=== PATIENT | male | born 1940 | race Caucasian/White ===

== ENCOUNTER 2017-09-28 21:55 | Emergency (ER) | payer BC ==
[~2017-09-28] VITALS: Ht 177.8 cm; Wt 74.8 kg
[~2017-09-28 21:55] MED LIST: ASPI81EC; BENAML10/2 PO; BENAML10/5; CELE200; DULO30 PO; HYDMOR2 PO; Naprosyn375 MG PO; Norco 5-325 Ta1 EACH PO; OMEP20ER PO; OXYACE5C; OXYC5 PO; PREG50 PO; Percocet 5-3251 EACH PO; TAMS.4ER PO; TRAZ50; TRIHYD253A; Ultram50 MG PO
[2017-09-28 22:38] LABS: BASOPHILS ABSOLUTE AUTO 0.01 K/mm3 (0.00-0.23); BASOPHILS PERCENT AUTO 0 % (0-2); EOSINOPHILS ABSOLUTE AUTO 0.08 K/mm3 (0.00-0.68); EOSINOPHILS PERCENT AUTO 2 % (0-6); Hematocrit 34.1 % (37.0-53.0); Hemoglobin 11.7 g/dL (13.5-17.5); IMMATURE GRAN ABSOLUTE AUTO 0.01 K/mm3 (0.00-0.10); IMMATURE GRAN PERCENT AUTO 0 % (0-1); LYMPHOCYTES ABSOLUTE AUTO 1.01 K/mm3 (0.84-5.20); LYMPHOCYTES PERCENT AUTO 23 % (21-46); MONOCYTES ABSOLUTE AUTO 0.82 K/mm3 (0.16-1.47); MONOCYTES PERCENT AUTO 19 % (4-13); Mean Corpuscular HGB 32.4 pg (26.0-34.0); Mean Corpuscular HGB Conc 34.3 g/dL (31.5-36.5); Mean Corpuscular Volume 95 fL (80-100); Mean Platelet Volume 10.4 fL (9.1-12.4); NEUTROPHILS ABSOLUTE AUTO 2.47 K/mm3 (1.96-9.15); NEUTROPHILS PERCENT AUTO 56 % (41-73); Platelet Count 151 K/mm3 (150-400); RDW Coefficient Variation 12.8 % (11.7-14.2); RDW Standard Deviation 44.7 fL (35.1-46.3); Red Blood Cell Count 3.61 M/mm3 (4.30-5.90)
[2017-09-28 23:03] LABS: Alanine Aminotransfer (ALT/SGP 14 U/L (12-78); Albumin, Blood 3.1 g/dL (3.4-5.0); Albumin/Globulin Ratio 0.8 (0.8-1.8); Alk Phos 60 U/L (50-136); Anion Gap 11 mmol/L (6-16); Aspartate Aminotrans (AST/SGOT 26 U/L (12-37); Bilirubin, Total 0.3 mg/dL (0.1-1.0); Blood Urea Nitrogen 9 mg/dL (8-24); Bun/Creatinine Ratio 12.6 (12.0-20.0); CO2, Blood 30 mmol/L (21-32); Chloride, Blood 92 mmol/L (98-108); Creatinine, Blood 0.72 mg/dL (0.60-1.20); Globulin, Blood 3.9 g/dL (2.2-4.0); Glomerular Filtration Rate >60 (60-); Glucose, Blood 96 mg/dL (70-99); Potassium, Blood 2.9 mmol/L (3.5-5.5); Sodium, Blood 133 mmol/L (136-145); Troponin I <0.015 ng/mL (0.000-0.040)
[2017-09-29] MEDS ORDERED: LEVFLO500 PO (02:18)
== END 2017-09-29 03:00 | disposition home or self-care (01) ==
LOC: ER 21:55
PROVIDERS: Emergency Medicine
DX: S22.079A Unspecified fracture of T9-T10 vertebra, initial encounter for closed fracture (principal); J18.9 Pneumonia, unspecified organism; E87.6 Hypokalemia; Z79.899 Other long term (current) drug therapy; Z87.891 Personal history of nicotine dependence; W01.0XXA Fall on same level from slipping, tripping and stumbling without subsequent striking against object, initial encounter
CPT/HCPCS: 36415; 71046; 71260; 80053; 84484; 85025; 93005; 93010; 96374; 96375; 99284; J1170; J2405; Q9967

== ENCOUNTER 2018-04-01 08:50 | Observation (INO) | payer BC ==
[~2018-04-01] VITALS: Ht 172.7 cm; Wt 68.0 kg
[~2018-04-01 08:50] MED LIST changes: +LEVFLO500 PO
[2018-04-01 09:12] LABS: BASOPHILS ABSOLUTE AUTO 0.01 K/mm3 (0.00-0.23); BASOPHILS PERCENT AUTO 0 % (0-2); EOSINOPHILS PERCENT AUTO 0 % (0-6); Hematocrit 36.9 % (37.0-53.0); Hemoglobin 12.8 g/dL (13.5-17.5); IMMATURE GRAN ABSOLUTE AUTO 0.03 K/mm3 (0.00-0.10); IMMATURE GRAN PERCENT AUTO 0 % (0-1); LYMPHOCYTES ABSOLUTE AUTO 0.25 K/mm3 (0.84-5.20); LYMPHOCYTES PERCENT AUTO 2 % (21-46); MONOCYTES PERCENT AUTO 9 % (4-13); Mean Corpuscular HGB 33.5 pg (26.0-34.0); Mean Corpuscular HGB Conc 34.7 g/dL (31.5-36.5); Mean Corpuscular Volume 97 fL (80-100); Mean Platelet Volume 9.9 fL (9.1-12.4); NEUTROPHILS ABSOLUTE AUTO 10.93 K/mm3 (1.96-9.15); NEUTROPHILS PERCENT AUTO 89 % (41-73); Platelet Count 188 K/mm3 (150-400); RDW Coefficient Variation 12.3 % (11.7-14.2); RDW Standard Deviation 43.8 fL (35.1-46.3); Red Blood Cell Count 3.82 M/mm3 (4.30-5.90); White Blood Cell Count 12.32 K/mm3 (4.00-11.30)
[2018-04-01 09:38] LABS: Alanine Aminotransfer (ALT/SGP 15 U/L (12-78); Albumin, Blood 3.2 g/dL (3.4-5.0); Albumin/Globulin Ratio 0.9 (0.8-1.8); Alk Phos 79 U/L (50-136); Anion Gap 10 mmol/L (6-16); Aspartate Aminotrans (AST/SGOT 14 U/L (12-37); Bilirubin, Total 0.7 mg/dL (0.1-1.0); Blood Urea Nitrogen 9 mg/dL (8-24); Bun/Creatinine Ratio 13.6 (12.0-20.0); CO2, Blood 28 mmol/L (21-32); Calcium, Blood 8.6 mg/dL (8.5-10.1); Chloride, Blood 102 mmol/L (98-108); Creatinine, Blood 0.66 mg/dL (0.60-1.20); Globulin, Blood 3.5 g/dL (2.2-4.0); Glomerular Filtration Rate >60 (60-); Glucose, Blood 136 mg/dL (70-99); Potassium, Blood 3.6 mmol/L (3.5-5.5); Sodium, Blood 140 mmol/L (136-145); Total Protein, Blood 6.7 g/dL (6.4-8.2)
[2018-04-01] MEDS ORDERED: PREG25 PO (12:47)
[2018-04-01] MEDS ORDERED: ACET325 (12:48)
[2018-04-01 19:44] LABS: BASOPHILS ABSOLUTE AUTO 0.02 K/mm3 (0.00-0.23); BASOPHILS PERCENT AUTO 0 % (0-2); EOSINOPHILS PERCENT AUTO 0 % (0-6); Hematocrit 34.9 % (37.0-53.0); Hemoglobin 12.2 g/dL (13.5-17.5); IMMATURE GRAN ABSOLUTE AUTO 0.06 K/mm3 (0.00-0.10); IMMATURE GRAN PERCENT AUTO 0 % (0-1); LYMPHOCYTES ABSOLUTE AUTO 0.78 K/mm3 (0.84-5.20); LYMPHOCYTES PERCENT AUTO 6 % (21-46); MONOCYTES PERCENT AUTO 9 % (4-13); Mean Corpuscular HGB 34.1 pg (26.0-34.0); Mean Corpuscular Volume 98 fL (80-100); Mean Platelet Volume 10.3 fL (9.1-12.4); NEUTROPHILS ABSOLUTE AUTO 11.72 K/mm3 (1.96-9.15); NEUTROPHILS PERCENT AUTO 85 % (41-73); Platelet Count 171 K/mm3 (150-400); RDW Coefficient Variation 12.6 % (11.7-14.2); RDW Standard Deviation 45.1 fL (35.1-46.3); Red Blood Cell Count 3.58 M/mm3 (4.30-5.90); White Blood Cell Count 13.78 K/mm3 (4.00-11.30)
[2018-04-02 04:53] LABS: BASOPHILS ABSOLUTE AUTO 0.01 K/mm3 (0.00-0.23); BASOPHILS PERCENT AUTO 0 % (0-2); EOSINOPHILS ABSOLUTE AUTO 0.06 K/mm3 (0.00-0.68); EOSINOPHILS PERCENT AUTO 1 % (0-6); Hematocrit 34.5 % (37.0-53.0); Hemoglobin 11.7 g/dL (13.5-17.5); IMMATURE GRAN ABSOLUTE AUTO 0.03 K/mm3 (0.00-0.10); IMMATURE GRAN PERCENT AUTO 0 % (0-1); LYMPHOCYTES ABSOLUTE AUTO 1.16 K/mm3 (0.84-5.20); LYMPHOCYTES PERCENT AUTO 11 % (21-46); MONOCYTES ABSOLUTE AUTO 0.96 K/mm3 (0.16-1.47); MONOCYTES PERCENT AUTO 9 % (4-13); Mean Corpuscular HGB 33.1 pg (26.0-34.0); Mean Corpuscular HGB Conc 33.9 g/dL (31.5-36.5); Mean Corpuscular Volume 98 fL (80-100); Mean Platelet Volume 10.3 fL (9.1-12.4); NEUTROPHILS ABSOLUTE AUTO 8.14 K/mm3 (1.96-9.15); NEUTROPHILS PERCENT AUTO 79 % (41-73); Platelet Count 174 K/mm3 (150-400); RDW Coefficient Variation 12.6 % (11.7-14.2); RDW Standard Deviation 45.3 fL (35.1-46.3); Red Blood Cell Count 3.54 M/mm3 (4.30-5.90); White Blood Cell Count 10.36 K/mm3 (4.00-11.30)
[2018-04-02] MEDS ORDERED: OMEPRAZOLE MAGN20 MG PO (16:43)
[2018-04-02] MEDS ORDERED: Augmentin 875-1 EACH PO (16:44)
== END 2018-04-02 17:57 | disposition home or self-care (01) ==
LOC: ER 08:50 → MEDS 08:51 → ENPENDDIS 04-02 17:35 → MEDS 04-02 17:57
PROVIDERS: Emergency Medicine; Hospitalist; Internal Medicine Gastroenterology
PROC: 0D758ZZ Dilation of Esophagus, Via Natural or Artificial Opening Endoscopic (ICD-10-PCS; principal; 2018-04-02 12:30)
PROC: 0DB48ZX Excision of Esophagogastric Junction, Via Natural or Artificial Opening Endoscopic, Diagnostic (ICD-10-PCS; 2018-04-02 12:30)
DX: K22.2 Esophageal obstruction (principal); K20.9 Esophagitis, unspecified; J69.0 Pneumonitis due to inhalation of food and vomit; K44.9 Diaphragmatic hernia without obstruction or gangrene; K92.0 Hematemesis; G89.29 Other chronic pain; M54.9 Dorsalgia, unspecified; M54.2 Cervicalgia; N40.0 Benign prostatic hyperplasia without lower urinary tract symptoms; I10 Essential (primary) hypertension; S22.39XA Fracture of one rib, unspecified side, initial encounter for closed fracture; G62.9 Polyneuropathy, unspecified; M19.90 Unspecified osteoarthritis, unspecified site; Z87.11 Personal history of peptic ulcer disease; Z87.891 Personal history of nicotine dependence; Z79.899 Other long term (current) drug therapy; X58.XXXA Exposure to other specified factors, initial encounter
CPT/HCPCS: 36415; 74177; 80053; 83690; 85025; 93005; 93010; 96365; 96366; 96375; 96376; 97116; 97161; 99285-25; C9113; G0378; G8978; G8979; J0456; J0696; J7050; J7120; Q9967

== ENCOUNTER 2018-08-23 22:06 | Emergency (ER) | payer BC ==
[~2018-08-23] VITALS: Ht 177.8 cm; Wt 72.6 kg
[~2018-08-23 22:06] MED LIST changes: +ACET325; +Augmentin 875-1 EACH PO; +OMEPRAZOLE MAGN20 MG PO; +PREG25 PO
[2018-08-23 22:43] LABS: BASOPHILS ABSOLUTE AUTO 0.03 K/mm3 (0.00-0.23); BASOPHILS PERCENT AUTO 0 % (0-2); EOSINOPHILS ABSOLUTE AUTO 0.07 K/mm3 (0.00-0.68); EOSINOPHILS PERCENT AUTO 1 % (0-6); Hematocrit 37.2 % (37.0-53.0); Hemoglobin 12.4 g/dL (13.5-17.5); IMMATURE GRAN ABSOLUTE AUTO 0.06 K/mm3 (0.00-0.10); IMMATURE GRAN PERCENT AUTO 1 % (0-1); LYMPHOCYTES PERCENT AUTO 25 % (21-46); MONOCYTES ABSOLUTE AUTO 1.07 K/mm3 (0.16-1.47); MONOCYTES PERCENT AUTO 15 % (4-13); Mean Corpuscular HGB 32.5 pg (26.0-34.0); Mean Corpuscular HGB Conc 33.3 g/dL (31.5-36.5); Mean Corpuscular Volume 98 fL (80-100); Mean Platelet Volume 9.4 fL (9.1-12.4); NEUTROPHILS ABSOLUTE AUTO 4.23 K/mm3 (1.96-9.15); NEUTROPHILS PERCENT AUTO 58 % (41-73); Platelet Count 282 K/mm3 (150-400); RDW Coefficient Variation 12.3 % (11.7-14.2); RDW Standard Deviation 43.8 fL (35.1-46.3); Red Blood Cell Count 3.81 M/mm3 (4.30-5.90); White Blood Cell Count 7.26 K/mm3 (4.00-11.30)
[2018-08-23 22:50] LABS: Bilirubin, Urine Neg (Neg); Blood, Urine Neg (Neg); Glucose Qualitative, Urine Neg (Neg); Ketones, Urine Neg (Neg); Leukocyte Esterase, Urine Neg (Neg); Nitrite, Urine Neg (Neg); Protein, Urine Neg (Neg); Source, Urine Clean Catch; Specific Gravity, Urine 1.005 (1.003-1.022); Urobilinogen, Urine NORM (Normal)
[2018-08-23 22:55] LABS: Appearance, Urine Clear (Clear); Color, Urine Pale Yellow (P-Yellow)
[2018-08-23 23:02] LABS: Anion Gap 11 mmol/L (6-16); Blood Urea Nitrogen 7 mg/dL (8-24); Bun/Creatinine Ratio 9.4 (12.0-20.0); CO2, Blood 26 mmol/L (21-32); Calcium, Blood 8.7 mg/dL (8.5-10.1); Chloride, Blood 99 mmol/L (98-108); Creatinine, Blood 0.75 mg/dL (0.60-1.20); Glomerular Filtration Rate >60 (60-); Glucose, Blood 74 mg/dL (70-99); Potassium, Blood 3.5 mmol/L (3.5-5.5); Sodium, Blood 136 mmol/L (136-145)
== END 2018-08-23 23:38 | disposition home or self-care (01) ==
LOC: ER 22:06
PROVIDERS: Physician Assistant
DX: S01.81XA Laceration without foreign body of other part of head, initial encounter (principal); Z79.899 Other long term (current) drug therapy; Z87.891 Personal history of nicotine dependence; W01.10XA Fall on same level from slipping, tripping and stumbling with subsequent striking against unspecified object, initial encounter
CPT/HCPCS: 80048; 81003; 85025; 99283

== ENCOUNTER 2019-01-13 19:39 | Emergency (ER) | payer BC ==
[~2019-01-13] VITALS: Ht 177.8 cm; Wt 72.6 kg
[2019-01-13 20:07] LABS: BASOPHILS ABSOLUTE AUTO 0.02 K/mm3 (0.00-0.23); BASOPHILS PERCENT AUTO 0 % (0-2); EOSINOPHILS ABSOLUTE AUTO 0.08 K/mm3 (0.00-0.68); EOSINOPHILS PERCENT AUTO 1 % (0-6); Hematocrit 31.4 % (37.0-53.0); Hemoglobin 10.6 g/dL (13.5-17.5); IMMATURE GRAN ABSOLUTE AUTO 0.04 K/mm3 (0.00-0.10); IMMATURE GRAN PERCENT AUTO 1 % (0-1); LYMPHOCYTES ABSOLUTE AUTO 0.99 K/mm3 (0.84-5.20); LYMPHOCYTES PERCENT AUTO 15 % (21-46); MONOCYTES ABSOLUTE AUTO 1.25 K/mm3 (0.16-1.47); MONOCYTES PERCENT AUTO 19 % (4-13); Mean Corpuscular HGB 33.8 pg (26.0-34.0); Mean Corpuscular HGB Conc 33.8 g/dL (31.5-36.5); Mean Corpuscular Volume 100 fL (80-100); Mean Platelet Volume 10.2 fL (9.1-12.4); NEUTROPHILS ABSOLUTE AUTO 4.21 K/mm3 (1.96-9.15); NEUTROPHILS PERCENT AUTO 64 % (41-73); Platelet Count 225 K/mm3 (150-400); RDW Coefficient Variation 12.6 % (11.7-14.2); Red Blood Cell Count 3.14 M/mm3 (4.30-5.90); White Blood Cell Count 6.59 K/mm3 (4.00-11.30)
[2019-01-13 20:23] LABS: Ethanol (Alcohol), Blood, Med 192 mg/dL; Magnesium, Blood 1.7 mg/dL (1.6-2.4); Troponin I <0.015 ng/mL (0.000-0.040)
[2019-01-13 20:39] LABS: Alanine Aminotransfer (ALT/SGP 18 U/L (12-78); Alk Phos 82 U/L (50-136); Anion Gap 12 mmol/L (6-16); Aspartate Aminotrans (AST/SGOT 40 U/L (12-37); Bilirubin, Total 0.4 mg/dL (0.1-1.0); Blood Urea Nitrogen 9 mg/dL (8-24); Bun/Creatinine Ratio 7.9 (12.0-20.0); CO2, Blood 21 mmol/L (21-32); Calcium, Blood 8.1 mg/dL (8.5-10.1); Chloride, Blood 103 mmol/L (98-108); Creatinine, Blood 1.14 mg/dL (0.60-1.20); Globulin, Blood 3.1 g/dL (2.2-4.0); Glomerular Filtration Rate >60 (60-); Glucose, Blood 78 mg/dL (70-99); Potassium, Blood 3.5 mmol/L (3.5-5.5); Sodium, Blood 136 mmol/L (136-145); Total Protein, Blood 6.1 g/dL (6.4-8.2)
== END 2019-01-13 21:45 | disposition home or self-care (01) ==
LOC: ER 19:39
PROVIDERS: Emergency Medicine
DX: F10.129 Alcohol abuse with intoxication, unspecified (principal); Z96.651 Presence of right artificial knee joint; W19.XXXA Unspecified fall, initial encounter; R29.6 Repeated falls; Z79.899 Other long term (current) drug therapy; I10 Essential (primary) hypertension; Z87.891 Personal history of nicotine dependence
CPT/HCPCS: 36415; 80053; 83735; 84484; 85025; 93005; 93010; 96374; 99284-25; G0480; J3411; J3475; J7042

== ENCOUNTER 2019-02-23 09:43 | Emergency (ER) | payer BC ==
[~2019-02-23] VITALS: Ht 175.3 cm; Wt 67.1 kg
[2019-02-23 10:18] LABS: BASOPHILS ABSOLUTE AUTO 0.03 K/mm3 (0.00-0.23); BASOPHILS PERCENT AUTO 1 % (0-2); EOSINOPHILS ABSOLUTE AUTO 0.13 K/mm3 (0.00-0.68); EOSINOPHILS PERCENT AUTO 3 % (0-6); Hematocrit 32.7 % (37.0-53.0); Hemoglobin 11.1 g/dL (13.5-17.5); IMMATURE GRAN ABSOLUTE AUTO 0.01 K/mm3 (0.00-0.10); IMMATURE GRAN PERCENT AUTO 0 % (0-1); LYMPHOCYTES ABSOLUTE AUTO 0.71 K/mm3 (0.84-5.20); LYMPHOCYTES PERCENT AUTO 15 % (21-46); MONOCYTES ABSOLUTE AUTO 0.71 K/mm3 (0.16-1.47); MONOCYTES PERCENT AUTO 15 % (4-13); Mean Corpuscular HGB 32.7 pg (26.0-34.0); Mean Corpuscular HGB Conc 33.9 g/dL (31.5-36.5); Mean Corpuscular Volume 97 fL (80-100); Mean Platelet Volume 10.1 fL (9.1-12.4); NEUTROPHILS ABSOLUTE AUTO 3.06 K/mm3 (1.96-9.15); NEUTROPHILS PERCENT AUTO 66 % (41-73); Platelet Count 246 K/mm3 (150-400); RDW Coefficient Variation 11.9 % (11.7-14.2); RDW Standard Deviation 41.7 fL (35.1-46.3); Red Blood Cell Count 3.39 M/mm3 (4.30-5.90); White Blood Cell Count 4.65 K/mm3 (4.00-11.30)
[2019-02-23 10:38] LABS: Alanine Aminotransfer (ALT/SGP 26 U/L (12-78); Albumin, Blood 3.2 g/dL (3.4-5.0); Albumin/Globulin Ratio 0.9 (0.8-1.8); Alk Phos 158 U/L (50-136); Anion Gap 4 mmol/L (6-16); Aspartate Aminotrans (AST/SGOT 21 U/L (12-37); Bilirubin, Total 0.6 mg/dL (0.1-1.0); Blood Urea Nitrogen 5 mg/dL (8-24); Bun/Creatinine Ratio 7.8 (12.0-20.0); CO2, Blood 30 mmol/L (21-32); Calcium, Blood 9.2 mg/dL (8.5-10.1); Chloride, Blood 104 mmol/L (98-108); Creatinine, Blood 0.64 mg/dL (0.60-1.20); Globulin, Blood 3.5 g/dL (2.2-4.0); Glomerular Filtration Rate >60 (60-); Glucose, Blood 93 mg/dL (70-99); Potassium, Blood 3.6 mmol/L (3.5-5.5); Sodium, Blood 138 mmol/L (136-145); Total Protein, Blood 6.7 g/dL (6.4-8.2)
[2019-02-23 11:52] LABS: Source, Urine Clean Catch
[2019-02-23 11:59] LABS: Appearance, Urine Clear (Clear); Bilirubin, Urine Neg (Neg); Blood, Urine Neg (Neg); Color, Urine Yellow (P-Yellow); Glucose Qualitative, Urine Neg (Neg); Ketones, Urine Neg (Neg); Leukocyte Esterase, Urine Neg (Neg); Nitrite, Urine Neg (Neg); Protein, Urine Neg (Neg); Specific Gravity, Urine 1.015 (1.003-1.022); Urobilinogen, Urine NORM (Normal); pH, Urine 6.5 (5.0-8.0)
== END 2019-02-23 13:42 | disposition home or self-care (01) ==
LOC: ER 09:43
PROVIDERS: Emergency Medicine
DX: R10.9 Unspecified abdominal pain (principal); Z79.899 Other long term (current) drug therapy; I10 Essential (primary) hypertension; Z87.891 Personal history of nicotine dependence
CPT/HCPCS: 74176; 80053; 81003; 83690; 85025; 96374; 96375; 99284-25; J2405; J3010; J7030

== ENCOUNTER → 2019-09-24 | Outpatient (CLI) | payer BC ==
[2019-09-24 15:09] LABS: BASOPHILS ABSOLUTE AUTO 0.02 K/mm3 (0.00-0.23); BASOPHILS PERCENT AUTO 0 % (0-2); EOSINOPHILS ABSOLUTE AUTO 0.29 K/mm3 (0.00-0.68); EOSINOPHILS PERCENT AUTO 6 % (0-6); Hemoglobin 12.2 g/dL (13.5-17.5); IMMATURE GRAN ABSOLUTE AUTO 0.01 K/mm3 (0.00-0.10); IMMATURE GRAN PERCENT AUTO 0 % (0-1); LYMPHOCYTES ABSOLUTE AUTO 0.91 K/mm3 (0.84-5.20); LYMPHOCYTES PERCENT AUTO 18 % (21-46); MONOCYTES ABSOLUTE AUTO 0.65 K/mm3 (0.16-1.47); MONOCYTES PERCENT AUTO 13 % (4-13); Mean Corpuscular HGB 33.1 pg (26.0-34.0); Mean Corpuscular HGB Conc 34.9 g/dL (31.5-36.5); Mean Corpuscular Volume 95 fL (80-100); Mean Platelet Volume 10.6 fL (9.1-12.4); NEUTROPHILS ABSOLUTE AUTO 3.15 K/mm3 (1.96-9.15); NEUTROPHILS PERCENT AUTO 63 % (41-73); Platelet Count 198 K/mm3 (150-400); RDW Coefficient Variation 12.7 % (11.7-14.2); RDW Standard Deviation 44.1 fL (35.1-46.3); Red Blood Cell Count 3.69 M/mm3 (4.30-5.90); White Blood Cell Count 5.03 K/mm3 (4.00-11.30)
[2019-09-24 15:27] LABS: Alanine Aminotransfer (ALT/SGP 14 U/L (12-78); Albumin, Blood 3.4 g/dL (3.4-5.0); Alk Phos 68 U/L (40-126); Anion Gap 9 mmol/L (6-16); Aspartate Aminotrans (AST/SGOT 16 U/L (12-37); Bilirubin, Total 0.5 mg/dL (0.1-1.0); Blood Urea Nitrogen 7 mg/dL (8-24); Bun/Creatinine Ratio 9.7 (12.0-20.0); CO2, Blood 28 mmol/L (21-32); Calcium, Blood 8.7 mg/dL (8.5-10.1); Chloride, Blood 105 mmol/L (98-108); Creatinine, Blood 0.72 mg/dL (0.60-1.20); Globulin, Blood 3.3 g/dL (2.2-4.0); Glomerular Filtration Rate >60 (60-); Glucose, Blood 86 mg/dL (70-99); Potassium, Blood 3.9 mmol/L (3.5-5.5); Sodium, Blood 142 mmol/L (136-145); Thyroid Stimulating Hormone 0.608 uIU/mL (0.360-4.800); Total Protein, Blood 6.7 g/dL (6.4-8.2)
== END | disposition home or self-care (01) ==
LOC: LAB EV 15:02 → LAB SHORT 15:02
PROVIDERS: Internal Medicine
DX: R60.0 Localized edema (principal)
CPT/HCPCS: 80053; 83880; 84443; 85025

== ENCOUNTER 2019-12-04 07:32 | Emergency (ER) | payer BC ==
[~2019-12-04] VITALS: Ht 175.3 cm; Wt 74.8 kg
[2019-12-04] MEDS ORDERED: Amlodipine-Ben1 EAC3 PO (07:45)
[2019-12-04] MEDS ORDERED: Klor-Con 1010 MEQ PO (07:45)
[2019-12-04] MEDS ORDERED: PREGABALIN50 MG PO (07:45)
[2019-12-04] MEDS ORDERED: FUROSEMIDE40 MG PO (07:45)
[2019-12-04] MEDS ORDERED: Cymbalta30 MG (07:45)
[2019-12-04] MEDS ORDERED: Ultram50 MG PO (08:46)
[2019-12-04] MEDS ORDERED: LIDO700A20 TOP (08:46)
== END 2019-12-04 09:06 | disposition home or self-care (01) ==
LOC: ER 07:32
DX: S22.41XA Multiple fractures of ribs, right side, initial encounter for closed fracture (principal); I10 Essential (primary) hypertension; Z79.899 Other long term (current) drug therapy; Z87.891 Personal history of nicotine dependence; W01.0XXA Fall on same level from slipping, tripping and stumbling without subsequent striking against object, initial encounter
CPT/HCPCS: 71101; 99283-25

== ENCOUNTER 2021-02-19 11:57 | Inpatient (IN) | payer MEDICARE, BC ==
[~2021-02-19] VITALS: Ht 175.3 cm; Wt 69.7 kg
[~2021-02-19 11:57] MED LIST changes: +Amlodipine-Ben1 EAC3 PO; +Cymbalta30 MG; +FUROSEMIDE40 MG PO; +Klor-Con 1010 MEQ PO; +LIDO700A20 TOP; -PREG25 PO; +PREGABALIN50 MG PO
[2021-02-19 12:14] LABS: BASOPHILS ABSOLUTE AUTO 0.03 K/mm3 (0.00-0.23); BASOPHILS PERCENT AUTO 0 % (0-2); EOSINOPHILS PERCENT AUTO 0 % (0-6); Hematocrit 41.7 % (37.0-53.0); Hemoglobin 13.8 g/dL (13.5-17.5); IMMATURE GRAN ABSOLUTE AUTO 0.17 K/mm3 (0.00-0.10); IMMATURE GRAN PERCENT AUTO 1 % (0-1); LYMPHOCYTES ABSOLUTE AUTO 0.82 K/mm3 (0.84-5.20); LYMPHOCYTES PERCENT AUTO 4 % (21-46); MONOCYTES ABSOLUTE AUTO 2.49 K/mm3 (0.16-1.47); MONOCYTES PERCENT AUTO 11 % (4-13); Mean Corpuscular HGB 32.3 pg (26.0-34.0); Mean Corpuscular HGB Conc 33.1 g/dL (31.5-36.5); Mean Corpuscular Volume 98 fL (80-100); Mean Platelet Volume 11.9 fL (9.1-12.4); NEUTROPHILS ABSOLUTE AUTO 18.35 K/mm3 (1.96-9.15); NEUTROPHILS PERCENT AUTO 84 % (41-73); Platelet Count 182 K/mm3 (150-400); RDW Coefficient Variation 12.8 % (11.7-14.2); Red Blood Cell Count 4.27 M/mm3 (4.30-5.90); White Blood Cell Count 21.86 K/mm3 (4.00-11.30)
[2021-02-19 12:29] LABS: Source, Urine Clean Catch
[2021-02-19 12:33] LABS: Alanine Aminotransfer (ALT/SGP 20 U/L (12-78); Albumin, Blood 3.7 g/dL (3.4-5.0); Albumin/Globulin Ratio 0.9 (0.8-1.8); Alk Phos 93 U/L (50-136); Anion Gap 12 mmol/L (6-16); Aspartate Aminotrans (AST/SGOT 29 U/L (12-37); Bilirubin, Total 1.6 mg/dL (0.1-1.0); Blood Urea Nitrogen 15 mg/dL (8-24); Bun/Creatinine Ratio 17.9 (12.0-20.0); CO2, Blood 25 mmol/L (21-32); CPK Creatine Kinase 770 U/L (39-308); Calcium, Blood 10.1 mg/dL (8.5-10.1); Chloride, Blood 103 mmol/L (98-108); Creatinine, Blood 0.84 mg/dL (0.60-1.20); Globulin, Blood 4.2 g/dL (2.2-4.0); Glomerular Filtration Rate >60 (60-); Glucose, Blood 141 mg/dL (70-99); Potassium, Blood 3.5 mmol/L (3.5-5.5); Sodium, Blood 140 mmol/L (136-145); Total Protein, Blood 7.9 g/dL (6.4-8.2); Troponin I 0.024 ng/mL (0.000-0.040)
[2021-02-19 12:38] LABS: Bilirubin, Urine Neg (Neg); Blood, Urine 5+ (Neg); Glucose Qualitative, Urine Neg (Neg); Ketones, Urine Neg (Neg); Leukocyte Esterase, Urine 3+ (Neg); Nitrite, Urine Neg (Neg); Protein, Urine 3+ (Neg); Urobilinogen, Urine NORM (Normal)
[2021-02-19 12:48] LABS: Creatine Kinase MB 9.8 ng/mL (0.0-3.6); Creatine Kinase MB Index 1.3 (0.0-4.0)
[2021-02-19 13:23] LABS: Appearance, Urine Clear (Clear); Color, Urine Yellow (P-Yellow)
[2021-02-19 13:36] LABS: Bacteria Many /hpf; Red Blood Cells, Urine 25-50 /hpf (0-2); Squamous Epithelial Cells Rare /hpf (Few); White Blood Cells, Urine TNTC /hpf (0-5)
[2021-02-19] MEDS ORDERED: PREG75 PO (13:47)
--- NOTE | 2021-02-19 19:46 | NUR ---
SHIFT SUMMARY: PT IS AN ADMIT FROM ER THIS AFTEROON. PT ARRIVES TO UNIT ALERT, ORIENTED TO SELF AND SITUATION, FOLLOWS SIMPLE COMMANDS BUT CONFUSION NOTED. PT MAINTAINS O2 SATS >92% ON RA, SR ON MONITOR. PT WITH ABRASION/BRUISING TO L HIP S/P FALL SUFFERED AT HOME. PT PREFERS TO REST ON HIS LEFT SIDE, REFUSES TO REPOSITION OFF HIS L HIP. PT OFTEN CALLING OUT IN DISCOMFORT, HAS BEEN MEDICATED PER EMAR. PT INCONTINENT OF URINE, ATTENDS IN PLACE AND CHANGED NEEDED. REPORT HAS BEEN GIVEN TO SHANNON MENDEZ TO ASSUME CARE OF PT.
[2021-02-20 04:45] LABS: Anion Gap 6 mmol/L (6-16); Blood Urea Nitrogen 17 mg/dL (8-24); Bun/Creatinine Ratio 23.6 (12.0-20.0); CO2, Blood 26 mmol/L (21-32); Calcium, Blood 8.7 mg/dL (8.5-10.1); Chloride, Blood 109 mmol/L (98-108); Creatinine, Blood 0.72 mg/dL (0.60-1.20); Glomerular Filtration Rate >60 (60-); Glucose, Blood 110 mg/dL (70-99); Potassium, Blood 3.3 mmol/L (3.5-5.5); Sodium, Blood 141 mmol/L (136-145)
--- NOTE | 2021-02-20 05:37 | NUR ---
SALES CLERK FOOD SUMMARY PT HAS REMAINED AXO TO SELF. PT'S BP HAS REMAINED WNL AND STABLE. O2 SATS >92% ON RM AIR. PT'S FEET ARE VERY SWOLLEN AND HE REPORTS IT IS PAINFULL TO STAND ON THEM CAUSING HIM TO FALL. PT HAS BEEN INCONTINENT THIS SHIFT. PT HAS HAD C/O BACK AND HIP PAIN THROUGHOUT THE SHIFT, MEDICATED PER EMAR. NS RUNNING AT 150ML/HR. PT AFEBRILE THIS SHIFT W PEAK TEMP AT 99.8. WILL REPORT TO ONCOMING RN.
--- NOTE | 2021-02-20 13:34 | NUR ---
Spiritual care visit conducted. Patient is lying on his side and yelling, "Help me, why won't anyone help me." Patient has (2) staff members in the trying to help him with his pain at that time . I then spend over 45 minutes rubbing patient's back and providing conversation to help distract from the pain. Patient talks about the of his spouse less then 2 months ago, about his family unit complications and about his artificial flowers starcher friend Yolis Estevez. I provide a calming presence, grief support, therapeutic listening and prayer. Patient responds well and is able to decrease his yelling significantly and shows signs of improved peace.
--- NOTE | 2021-02-20 16:45 | NUR ---
SHIFT SUMMARY: PT CONTINUES AGITATED T/OUT SHIFT, YELLING "HELP ME", "I'VE GOT TO GET UP". MULTIPLE STAFF TO ROOM T/OUT SHIFT IN ATTEMPTS TO HELP PT WITH DISCOMFORT, REPOSITIONING, AND TO SPEND TIME WITH HIM. PT CONSISITENTLY RESISTS REPOSITIONING, DENIES TO GO TO IMAGING DEPT FOR CT SCAN OF ABDOMEN, OFTEN FOUND TO BE PULLING AT HIS IV TUBING AND/OR REMOVING TELEMETRY LEADS. DR BECKHAM NOTIFIED OF PT BEHAVIOR, PRN MEDICATION ORDER GIVEN AND PLACED. PT MEDICATED PER ORDERS FOR AGITATION, ELEVATED TEMPERATURE, AND C/O PAIN. PT FOUND TO HAVE PERIODS OF REST LASTING APPROX 30 MINS, THEN BECOMES AGITATED AND FIDGETS WITH HIS TUBING/TELEMETRY. OTHER THAN ELEVATED TEMP, VSS. PT CONTINUES TO MAINTAIN O2 SATS ON RA. PT'S BROTHER, IDANIA, UPDATED VIA PHONE CALL TODAY. WILL CONTINUE TO MONITOR AND TREAT ACCORDINGLY UNTIL CHANGE OF SHIFT.
--- NOTE | 2021-02-21 04:34 | NUR ---
summary pt arrived to floor in no distress. pt confused and yelling out at times. pt has been sleeping for most of the shift. pt currently sleeping and quiet. call light in reach and bed alarm on.
[2021-02-21 04:58] LABS: BASOPHILS ABSOLUTE AUTO 0.02 K/mm3 (0.00-0.23); BASOPHILS PERCENT AUTO 0 % (0-2); EOSINOPHILS PERCENT AUTO 0 % (0-6); Hemoglobin 11.7 g/dL (13.5-17.5); IMMATURE GRAN ABSOLUTE AUTO 0.07 K/mm3 (0.00-0.10); IMMATURE GRAN PERCENT AUTO 1 % (0-1); LYMPHOCYTES ABSOLUTE AUTO 0.28 K/mm3 (0.84-5.20); LYMPHOCYTES PERCENT AUTO 3 % (21-46); MONOCYTES ABSOLUTE AUTO 1.17 K/mm3 (0.16-1.47); MONOCYTES PERCENT AUTO 11 % (4-13); Mean Corpuscular HGB 32.6 pg (26.0-34.0); Mean Corpuscular HGB Conc 34.4 g/dL (31.5-36.5); Mean Corpuscular Volume 95 fL (80-100); Mean Platelet Volume 12.4 fL (9.1-12.4); NEUTROPHILS ABSOLUTE AUTO 8.76 K/mm3 (1.96-9.15); NEUTROPHILS PERCENT AUTO 85 % (41-73); Platelet Count 103 K/mm3 (150-400); RDW Coefficient Variation 12.7 % (11.7-14.2); RDW Standard Deviation 44.1 fL (35.1-46.3); Red Blood Cell Count 3.59 M/mm3 (4.30-5.90)
[2021-02-21 05:16] LABS: Alanine Aminotransfer (ALT/SGP 25 U/L (12-78); Albumin, Blood 2.5 g/dL (3.4-5.0); Albumin/Globulin Ratio 0.6 (0.8-1.8); Alk Phos 59 U/L (50-136); Anion Gap 8 mmol/L (6-16); Aspartate Aminotrans (AST/SGOT 34 U/L (12-37); Bilirubin, Total 0.7 mg/dL (0.1-1.0); Blood Urea Nitrogen 15 mg/dL (8-24); Bun/Creatinine Ratio 22.2 (12.0-20.0); CO2, Blood 25 mmol/L (21-32); Calcium, Blood 8.6 mg/dL (8.5-10.1); Chloride, Blood 107 mmol/L (98-108); Creatinine, Blood 0.68 mg/dL (0.60-1.20); Globulin, Blood 3.9 g/dL (2.2-4.0); Glomerular Filtration Rate >60 (60-); Glucose, Blood 113 mg/dL (70-99); Potassium, Blood 2.6 mmol/L (3.5-5.5); Sodium, Blood 140 mmol/L (136-145); Total Protein, Blood 6.4 g/dL (6.4-8.2)
--- NOTE | 2021-02-21 17:44 | NUR ---
PT IS ALERT, CONFUSED AND YELLS OUT WELL USESING THE CALL LIGHT, THE PT C/O PAIN WITH ANY REPOSITIONING OR CONTACT. THE PT REFUSED PHYSICAL THERAPY TODAY AND DECLINED TO GET UP INTO THE CHAIR. THE PT WAS MEDICATED FOR PAIN X2 SO FAR TODAY THE PT WAS GIVEN IV POTASSIUM REPLACEMENT AND TOLERATED IT WELL. THE PT APPEARS TO BE BREATHING EASILY AT THIS TIME. THE CALL LIGHT IS IN REACH. THE PT IS LYING ON HIS RIGHT SIDE. SO FAR TODAY THE PT HAS REFUSED HIS MEALS. WILL CONTINUE TO MONITOR AND ASSESS FOR CHANGES
[2021-02-22 05:08] LABS: BASOPHILS ABSOLUTE AUTO 0.01 K/mm3 (0.00-0.23); BASOPHILS PERCENT AUTO 0 % (0-2); EOSINOPHILS ABSOLUTE AUTO 0.02 K/mm3 (0.00-0.68); EOSINOPHILS PERCENT AUTO 0 % (0-6); Hematocrit 32.7 % (37.0-53.0); Hemoglobin 10.9 g/dL (13.5-17.5); IMMATURE GRAN ABSOLUTE AUTO 0.04 K/mm3 (0.00-0.10); IMMATURE GRAN PERCENT AUTO 1 % (0-1); LYMPHOCYTES ABSOLUTE AUTO 0.42 K/mm3 (0.84-5.20); LYMPHOCYTES PERCENT AUTO 5 % (21-46); MONOCYTES PERCENT AUTO 14 % (4-13); Mean Corpuscular HGB 31.5 pg (26.0-34.0); Mean Corpuscular HGB Conc 33.3 g/dL (31.5-36.5); Mean Corpuscular Volume 95 fL (80-100); Mean Platelet Volume 12.7 fL (9.1-12.4); NEUTROPHILS ABSOLUTE AUTO 7.19 K/mm3 (1.96-9.15); NEUTROPHILS PERCENT AUTO 81 % (41-73); Platelet Count 107 K/mm3 (150-400); RDW Coefficient Variation 12.5 % (11.7-14.2); RDW Standard Deviation 43.7 fL (35.1-46.3); Red Blood Cell Count 3.46 M/mm3 (4.30-5.90); White Blood Cell Count 8.88 K/mm3 (4.00-11.30)
--- NOTE | 2021-02-22 05:15 | NUR ---
SHIFT SUMMARY: PT IS ALERT AND ORIENTED WITH MINOR CONFUSION. PT IS A 2 PERSON ASSIST TO BSC, BED ALARM SET. PT INCONTINENT ON SEVERAL OCCASIONS THROUGHOUT THE NIGHT, CHANGED AND CLEANED NEEDED. PT REPORTS PAIN, MEDICATING PER EMAR. PT DENIES NAUSEA, VOMITING, AND SOB. PT SLEPT INTERMITTENTLY THROUGHOUT THE NIGHT. BED IN LOW POSITION, CALL LIGHT WITHIN REACH. WILL CONTINUE TO MONITOR AND REPORT TO DAY NURSE.
[2021-02-22 05:32] LABS: Anion Gap 6 mmol/L (6-16); Blood Urea Nitrogen 16 mg/dL (8-24); Bun/Creatinine Ratio 25.9 (12.0-20.0); CO2, Blood 28 mmol/L (21-32); Calcium, Blood 8.5 mg/dL (8.5-10.1); Chloride, Blood 107 mmol/L (98-108); Creatinine, Blood 0.62 mg/dL (0.60-1.20); Glomerular Filtration Rate >60 (60-); Glucose, Blood 116 mg/dL (70-99); Potassium, Blood 2.6 mmol/L (3.5-5.5); Sodium, Blood 141 mmol/L (136-145)
--- NOTE | 2021-02-22 15:42 | NUR ---
Spiritual care visit conducted. Patient is lying in bed and is improved from the last visit (2) dys ago. I provide a calming presence and gentle encouragement. Patient responds well and voices appreciation for the visit.
--- NOTE | 2021-02-22 17:06 | NUR ---
PT IS A/OX3, MORE ALERT TODAY COMPARED TO YESTERDAY. TODAY THE PT WAS HAVING A CONSIDERABLE AMOUNT OF PAIN. DR. BECKHAM PUT IN NEW ORDERS FOR THE PTS PAIN AND THIS AFTERNOON THE PT SEEMS TO BE CONSIDERABLY MORE COMFORTABLE. THE PT WAS ABLE TO TOLERATE AN MRI SCAN THIS AFTERNOON, THE PT APPEARS TO BE BREATHING EASILY ON RA. THE PT CONTINUES TO HAVE NO APPETITE REFUSING HIS MEALS. THIS AFTERNOON THE PT IS RECEIVING A NS SALINE BOLUS FOR BP 89/55. THE PTS NEIGHBOR/FREIND WAS IN TO SEE HIM TODAY. A PAALIATIVE CONSULT WAS ORDERED. CALL LIGHT IN REACH, WILL CONTINUE TO MONITOR AND ASSESS FOR CHANGES
--- NOTE | 2021-02-22 20:17 | NUR ---
ASSUMED CARE. AOX3, VERY DEPRESSED AND FTT BEHAVIOR. LOST A FEW MONTHS BACK AND IS STILL GRIEVING FOR HER LOSS. WITHDRAWN AND DOES NOT WANT TO MOVE MUCH. STATES BACK AND LEFT SIDE HURT 03/13 FROM THE FALL. VERY DEPRESSED THAT NO ONE CAME TO VISIT HIM TODAY. FEELS VERY LONELY AND FINDING IT DIFFICULT TO GET THROUGH THE DAYS. LUNG SOUNDS ARE CLEAR, SINUS HR. TENDER ALL OVER THE BODY EVEN FOR TOUCH. MEDICATED WITH DILUDID WHICH HELPED. USES URINAL WITH ASSIST. POOR APPETITE. WILL ONLY DRINK PEPSI. DISCUSSED HIS WEAKNESS AND WAYS HE CAN HELP HIS BODY HEAL. WAS ABLE TO TALK HIM INTO A [place]. HE ATE ABOUT 3[facility]4 [facility] A [employer]F [facility] [employer] WHICH IS ALL HE HAS HAD IN THE LAST SEVERAL DAYS. BT HYPOACTIVE, PASSING GAS. NO EDEMA, CP, PALPITATIONS. OR OTHER COMPLAINTS OTHER THEN BEING VERY COLD. TURNED HI HEAT ALL THE WAY UP TO HELP WITH PAIN WELL. WILL CONTINUE TO MONITOR. CALL LIGHT IS IN REACH, BED ALARM IS ON.
--- NOTE | 2021-02-22 22:09 | NUR ---
HUSSEIN HAS CALLED OUT SEVERAL TIMES EVEN THOUGH HE HAS THE CALL LIGHT IN HIS HANDS. AT ONE TIME HE WAS ASKING QUESTIONS LIKE "[facility] "WHAT ROOM EM I IN?" THEN STARTED TO CRY TALKING ABOUT HIS BEING GONE AND HOW MUCH HE MISSED HER. STATING SHE WAS EVERYTHING TO HIM. HE WAS STILL ABLE TO ANSWER ORIENTATION QUESTIONS BUT MUST OF WOKE UP IN A DREAM LIKE STATE. CURRENTLY ON THE BED WISE, BUT HAS NOT GONE. REFUSES TO LET US REMOVE IT STATING HE IS NOT READY YET. WILL CONTINUE TO MONITOR. CALL LIGHT IN HAND.
--- NOTE | 2021-02-22 22:50 | NUR ---
HUSSEIN IS VERY DEPRESSED TEARING UP OFTEN REGARDING MEMORIES OF HIS . BOUNCES FROM CONVERSATION TO CONVERSATION WHICH SOUNDS LIKE HE IS CONFUSED BUT HE JUST CAN'T KEEP ON TRACK. REMOVED BEDPAN, JUST PASSING GAS. REPOSITIONED ON LEFT SIDE. AND TUCKED HIM INTO BED. WILL CONTINUE TO MONITOR. BED ALARM IS ON.
--- NOTE | 2021-02-23 | NUR ---
SLEEPING ON SIDE. NO SIGNS OF DISTRESS. CALL LIGHT IN REACH, BED ALARM IS ON.
--- NOTE | 2021-02-23 00:49 | NUR ---
PATIENT COMPLAINED OF PAIN IN LEFT HIP. WENT TO GIVE DILUDID AND HIS OTHER IV BLEW. NEW IV STARTED IN LEFT WRIST. DURING AT WHICH HE WAS GETTING VERY IRRITATED THAT I WAS NOT PUTTING ICY HOT ON HIS HIP. NOT UNDERSTANDING THAT THE IV IS FOR THE USE OF PAIN MEDICATION. HE JUST KEPT ON SAYING "WHAT DOES THIS HAVE TO DO WITH MY HIP.". VERY ANXIOUS AND TEARFUL. CALLED MD AND GOT ORDER FOR ICY HOT AND ATIVAN TO HELP WITH SLEEP AND ANXIOUSNESS.
[2021-02-23 05:14] LABS: Hematocrit 34.8 % (37.0-53.0); Hemoglobin 11.5 g/dL (13.5-17.5); Mean Corpuscular HGB 31.2 pg (26.0-34.0); Mean Corpuscular Volume 94 fL (80-100); Mean Platelet Volume 12.7 fL (9.1-12.4); Platelet Count 134 K/mm3 (150-400); RDW Coefficient Variation 12.6 % (11.7-14.2); RDW Standard Deviation 43.8 fL (35.1-46.3); Red Blood Cell Count 3.69 M/mm3 (4.30-5.90); White Blood Cell Count 7.93 K/mm3 (4.00-11.30)
[2021-02-23 05:37] LABS: Anion Gap 7 mmol/L (6-16); Blood Urea Nitrogen 19 mg/dL (8-24); Bun/Creatinine Ratio 28.6 (12.0-20.0); CO2, Blood 27 mmol/L (21-32); Calcium, Blood 8.5 mg/dL (8.5-10.1); Chloride, Blood 107 mmol/L (98-108); Creatinine, Blood 0.67 mg/dL (0.60-1.20); Glomerular Filtration Rate >60 (60-); Glucose, Blood 170 mg/dL (70-99); Potassium, Blood 3.1 mmol/L (3.5-5.5); Sodium, Blood 141 mmol/L (136-145)
[2021-02-23 05:42] LABS: BAND PERCENT MAN 13 % (0-8); BASOPHILS PERCENT MAN 0 % (0-2); EOSINOPHILS PERCENT MAN 0 % (0-6); LYMPHOCYTES ABSOLUTE MAN 0.31 K/mm3 (0.84-5.20); LYMPHOCYTES PERCENT MAN 4 % (21-46); MONOCYTES ABSOLUTE MAN 0.47 K/mm3 (0.16-1.47); MONOCYTES PERCENT MAN 6 % (4-13); MYELOCYTE ABSOLUTE MAN 0.07 K/mm3 (0.00-0.00); MYELOCYTE PERCENT MAN 1 % (0-0); NEUTROPHILS ABSOLUTE MAN 7.05 K/mm3 (1.96-9.15); SEG NEUTROPHILS PERCENT MAN 76 % (41-73); TOTAL CELLS COUNTED 100
--- NOTE | 2021-02-23 06:08 | NUR ---
SHIFT SUMMARY; HUSSEIN IS ABLE TO STATE ORIENTATION QUESTIONS BUT HAS PERIODS OF BEHAVIORAL OUTBURT OF IRRITATION AND AGITATION. CAN HAVE PERIODS WHERE HE QUESTIONS WHERE HE IS AT AND WHAT IS GOING ON. HE GOT VERY AGGITATED LAST NIGHT OVER WANTING PAIN MEDICATION BUT HIS IV INFILTRATED AND HE GOT FRUSTRATED THAT I WAS PUTTING ONE IN TO GIVE HIM PAIN MEDICATION BUT COULD NOT UNDERSTAND HOW IT RELATED TO HIS HIP PAIN. THEN WENT OFF ABOUT WANTING ICY HOT. WHEN HE GOT ICY HOT ON, HE WANTED TO BE COVERED THEN A MINUTE LATER WANTED TO GET UP TO WASH IT OFF. TELLING US HE HAS BEEN DOING THIS FOR YEARS AND KNOWS WHAT TO DO. HE HAD SEVERAL PERIOD OF SCATTERED THOUGHTS, VERY LOW PERIODS OF DEPRESSION AND BEING TEARFUL. TO NOT WANTING TO DO ANYTHING HIMSELF TO STATING HE CAN DO EVERYTHING. HIS BEHAVIOR IS ALL OVER THE PLACE ALONG WITH HIS THOUGHT PROCESS. LUNGS ARE DIMINISHED, PAIN IN LEFT HIP AND LOWER BACK. INCONTIENT OF URINE. WILL CALL OUT AT TIMES BUT USE THE CALL LIGHT WELL. BED ALARM IS ON. DID MEDICATE FOR HTN X1. WILL REPORT TO DAYSHIFT.
--- NOTE | 2021-02-23 09:17 | NUR ---
Pt challenging to work with this morning. He is refusing assessment, medication, assistance with ADLs, and also will not eat breakfast. Pt verbalizes desire to call the police to take him home because, "I don't want to here." Physical therapy in with patient at this time. Plan to follow up and request permission to provide care. Will continue to monitor pt.
--- NOTE | 2021-02-23 11:32 | NUR ---
Spiritual care visit conducted. 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 He says that he yells because of the pain physically but the pain of the loneliness and ache of the loss from his spouse is the deeper reason. He suggests that he doesn't care about infections or getting better now that his spouse is gone. He does admit that he would "stay around" for his dog Frickles and the friends that have taken him in and showed him great kindness. I reinforce helpful attitudes and practices and provide companionship, therapeutic listening and prayer. Patient responds well and shows signs of increased hope. I will continue to remain available.
--- NOTE | 2021-02-23 11:48 | NUR ---
ASSUMED CARE OF PATIENT UPON HIS TRANSFER TO ROOM 344 FROM [facility]. HE A&O X 2, PLEASANT, DISHEVELED. C/O PAIN IN LOWER BACK, MEDICATED JUST PRIOR TO TRANSFER. IS UP IN RECLINER, CALL LIGHT AND BELONGINGS IN REACH.
--- NOTE | 2021-02-23 18:04 | NUR ---
Spent a significant amount of time with pt today; he exhibits high anxiety and frequent requests. Because of his altered mental status, I was unable to assess his care planning needs. Pt to transfer north for surgical intervention, but will continue to attempt to work on goals of care until then.
--- NOTE | 2021-02-23 18:13 | NUR ---
SUMMARY PT SITTING UP ON THE COMMODE, PT HAS HAD BETTER PAIN CONTROL TODAY, ABLE TO WORK WITH PT/OT, A FRIEND HAS CAME IN TO VISIT, PT ABLE TO TAKE PILLS WHOLE AND FEED HIMSELF, POOR APPETITE, MED PER EMAR FOR PAIN, VSS, WILL CONTINUE TO MONITOR
--- NOTE | 2021-02-24 04:02 | NUR ---
SHIFT SUMMARY ADMITTED FOR SEPTIC SHOCK/DISCITIS. DNR CODE. PLAN IS FOR PLACEMENT. ANTIB RX ARE SCHEDULED. HE IS FORGETFUL, A&O X2-3. THIS SHIFT HE PREFERED TO SLEEP IN HIS CHAIR. HE DOES INFORM ME THAT HIS 3 MONTHS AGO. HE DID NOT REQUEST PAIM MEDS SO FAR THIS SHIFT. WE DID 2 ASSIST HIM TO BSC THIS SHIFT.
--- NOTE | 2021-02-24 05:45 | NUR ---
PT STATUS PT AGITATED, YELLING AT STAFF. I HAVE RUBBED VEENA ROPER INTO HIS HIPS, I GAVE HIM AN ORAL PAIN PILL, WE GAVE HIM WARM BLANKETS. WE REPOSITIONED HIM. HE IS EMOTIONAL THIS MORNING, NOT ABLE TO BE REDIRECTED. HE IS CONFUSED
[2021-02-24 09:27] LABS: Anion Gap 6 mmol/L (6-16); Blood Urea Nitrogen 19 mg/dL (8-24); CO2, Blood 29 mmol/L (21-32); Calcium, Blood 8.6 mg/dL (8.5-10.1); Chloride, Blood 105 mmol/L (98-108); Creatinine, Blood 0.59 mg/dL (0.60-1.20); Glomerular Filtration Rate >60 (60-); Glucose, Blood 152 mg/dL (70-99); Potassium, Blood 2.9 mmol/L (3.5-5.5); Sodium, Blood 140 mmol/L (136-145)
--- NOTE | 2021-02-24 18:03 | NUR ---
SHIFT SUMMARY: NO ACUTE EVENTS. C/O PAIN IN L HIP; MEDICATED PER EMAR WITH SOME RELIEF. A&O X 2, CONFUSED AT TIMES. REQUIRES TWO PERSON MAX ASSIST FOR TRANSFERS, VERY AFRAID OF FALLING. A LITTLE ARGUMENTATIVE TODAY, FREQUENT REQUESTS FOR ASSISTANCE WITH DIALING THE PHONE, FRUSTRATED THAT HE CANNOT GET A HOLD OF ANYONE. CBG < 150. POTASSIUM REPLACED. STAYED IN RECLINER ALL SHIFT.
--- NOTE | 2021-02-25 04:10 | NUR ---
SHIFT SUMMARY ADMITTED FOR SEPTIC SHOCK/DISCITIS. DNR CODE. PLAN IS FOR PLACEMENT. ANTIB RX ARE SCHEDULED. 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 STEROIDS ARE BEING TAPERED. PT RESTED COMFORTABLY SO FAR THIS SHIFT. HE DENIED PAIN SO FAR THIS SHIFT.
[2021-02-25 04:56] LABS: Anion Gap 4 mmol/L (6-16); Blood Urea Nitrogen 16 mg/dL (8-24); Bun/Creatinine Ratio 26.5 (12.0-20.0); CO2, Blood 32 mmol/L (21-32); Calcium, Blood 8.5 mg/dL (8.5-10.1); Chloride, Blood 103 mmol/L (98-108); Glomerular Filtration Rate >60 (60-); Glucose, Blood 107 mg/dL (70-99); Potassium, Blood 2.7 mmol/L (3.5-5.5); Sodium, Blood 139 mmol/L (136-145)
--- NOTE | 2021-02-25 18:09 | NUR ---
SHIFT SUMMARY: NO ACUTE EVENTS. A&O X 2, CONFUSED AT TIMES. REFUSED TO GET OOB TO CHAIR TODAY, MEDICATED FOR PAIN PER EMAR, USED MUSCLE RUB X 2. INCONTINENT AT TIMES, WEARING ATTENDS. HAD LOOSE BM TODAY. APPETITE IS DECREASING. SLEPT A LOT TODAY.NEEDS ENCOURAGEMENT TO REPOSITION SELF, TENDS TO LIE ON L SIDE. PLAN IS PICC PLACEMENT WITH OVEN DAUBER ABX. REPEAT BLOOD CULTURES NOT NECESSARY PER DR. ZAYAS.
[2021-02-26 05:07] LABS: Anion Gap 5 mmol/L (6-16); Blood Urea Nitrogen 17 mg/dL (8-24); Bun/Creatinine Ratio 28.2 (12.0-20.0); CO2, Blood 30 mmol/L (21-32); Calcium, Blood 8.3 mg/dL (8.5-10.1); Chloride, Blood 102 mmol/L (98-108); Glomerular Filtration Rate >60 (60-); Glucose, Blood 98 mg/dL (70-99); Magnesium, Blood 1.9 mg/dL (1.6-2.4); Potassium, Blood 3.3 mmol/L (3.5-5.5); Sodium, Blood 137 mmol/L (136-145)
--- NOTE | 2021-02-26 05:41 | NUR ---
SHIFT SUMMARY- PT. A&O WITH INTERMITTENT CONFUSION. HAD COMPLAINTS OF L HIP PAIN AND [place] DURING THE NIGHT, MEDICATED PER EMAR WITH GOOD EFFECT. PT. REPOSITIONED FOR COMFORT AND PRN. SLEPT ON/OFF DURING THE NIGHT, VSS. CALL LIGHT WITHIN REACH, SIDE RAILS UPX2, AND BED ALARM ON. WILL CONT TO MONITOR.
--- NOTE | 2021-02-26 15:31 | NUR ---
Spiritual care visit conducted. Patient is the most clear and stable he has been since the beginning of this hospital stay. Patient immediately tells me about the will he is hand writing on a note pad and shares about what items are going to which person and why. We discuss how he would like to spend the last season of his life (at the house he is living in, having coffee in the morning, his dog by his side and watching nature with his binoculars). He also expresses his gratitude for the families from the [facility] that have taken him in. I provide prayer and companionship. Patient responds well and shows signs of increased peace about his end of life stages.
--- NOTE | 2021-02-26 16:52 | NUR ---
SHIFT SUMMARY PT AxOx4 WITH INTERM CONFUSION. PT RESISTENT TO GET OUT OF BED AND TURN FOR REPOSITIONS/CHANGES D/T PAIN. PT MEDICATED PER EMAR. PT/OT WORKED WITH PATIENT TODAY, AND SAT UP IN CHAIR FOR SHORT TIME. PICC LINE INSERTED TODAY. CURRENT PLAN IS TO DC WITH PRISON ABX, STILL PENDING SNF OR HOME WITH HH. PT'S VITALS REVIWED. PT CURRENTLY RESTING IN BED WITH CALL LIGHT IN REACH. PT DENIES ANY NEEDS AT THIS TIME.
--- NOTE | 2021-02-27 06:21 | NUR ---
SHIFT SUMMARY- NO ACUTE EVENTS OVERNIGHT. PT. SLEPT T/O THE NIGHT, NO APPARENT DISTRESS NOTED. REPOSITIONED FOR COMFORT/PRN. PT. WITH COMPLAINTS OF KNEE, L HIP PAIN. APPLIED VEENA ROPER CREAM PER PT. REQUEST. REPORTED GOOD RELIEF. DENIED ANY OTHER NEEDS DURING THE NIGHT, VSS. CALL [facility] WITHIN REACH, SIDE RAILS UPX2, AND BED ALARM ON. WILL CONT TO MONITOR.
--- NOTE | 2021-02-27 11:49 | NUR ---
D/C [facility] PATIENT REFUSING BLOOD SUGAR CHECKS. RECEIVED T.O. FROM DR. ZAYAS TO D/C [facility]. PATIENT IS NOT DIABETIC AND ONLY GETTING SUGAR CHECKS FOR STEROIDS.
--- NOTE | 2021-02-27 18:12 | NUR ---
Shift Summary A/O to self. At start of shift and throughout day, patient has been impulsive, combative, and agitated. Patient swings legs out and attempts to climb OOB mulitple times. Camera is on and verified by remote monitors that patient is in sight. Toward end of shift, patient has been sleepy. Restraints d/c'd. PT/OT attempted to see patient, however, patient unable to follow simple commands. at bedside this afternoon, states patient's baseline is independent at home. NS @ 100.
--- NOTE | 2021-02-27 18:23 | NUR ---
Shift Summary AOx3, irritable at times. C/O back and L hip pain, refused to see PT today. Continent with urinal at bedside. Mild confusion and forgetfulness. Medicate for pain per EMAR, heating pad placed to L hip. Often refuses respositioning d/t pain. Appetite is good. Patient also declined to discharge to SNF until tomorrow morning. Discharge is held, COVID swab sent to lab. [facility].
[2021-02-27 18:58] LABS: SARS-Cov-2 (COVID-19) PCR, MMC NEGATIVE (NEGATIVE)
--- NOTE | 2021-02-28 03:09 | NUR ---
SHIFT SUMMARY PT BECAME INCREASINGLY CONFUSED THE NIGHT PROGRESSED, PT UNAWARE AT TIMES THAT HE WAS EVEN IN THE HOSPITAL. PT WOULD ASK FOR MEDICATIONS THAT HE HAD ALREADY RECEIVED (BENGAY) AND WOULD BECOME FRUSTRATED WHEN STAFF TOLD HIM HE COULD NOT HAVE ANYMORE. PT RECEIVED BENGAY CREME TO HIP AND BACK AND SHORTLY AFTER ASKED FOR MORE. PT OFFERED NORCO FOR ADDITIONAL PAIN RELEIF IN WHICH HE REFUSED. HEATING PAD IN PLACE TO HIP AND BACK FOR ADDITIONAL RELIEF. PT WITH NONSENSICAL SPEECH, INPAITENT, YELLS OUT AND USES CALL LIGHT FREQUENTLY. BED ALARM IN PLACE FOR SAFETY. PLAN IS FOR DC SNF TODAY. PT ANXIOUS ABOUT DISCHARGE, AND CONCERNED WITH GETTING PACKED UP BEFORE DISCHARGE. NO ACUTE CHANGES OVERNIGHT, BED IN LOWEST POSITION, CALL LIGHT WITHIN REACH.
--- NOTE | 2021-02-28 17:30 | NUR ---
SHIFT SUMMARY PT AWAKE AT START OF SHIFT, C/O PAIN. MEDICATED PER EMAR. PT HAD BEEN REFUSING PAIN MEDICATION AND ONLY ACCEPTING VEENA ROPER. PT AGREEABLE TO PAIN MEDICATION, WHICH HAS HELPED ALL DAY. WHEN PAIN MEDICATION BECAME EFFECTIVE, PT THEN WANTING TO GET OUT OF HERE. PT HAD REFUSED D/C YESTERDAY, BUT AGREEABLE TODAY. 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 PT HAS BEEN CONTINENT AND INCONTINENT OF URINE, USING URINAL AT TIMES. A&O TO SELF AND FAMILY, BUT CONFUSED AND DISORIENTED TO WHERE HE IS AT AND WHY. USING HEATING PAD TO R HIP. ABLE TO USE CALL LT FOR NEEDS. RESTING QUIETLY AT THIS TIME.
[2021-03-01 05:42] LABS: Hematocrit 35.4 % (37.0-53.0); Hemoglobin 11.8 g/dL (13.5-17.5); Mean Corpuscular HGB 31.4 pg (26.0-34.0); Mean Corpuscular HGB Conc 33.3 g/dL (31.5-36.5); Mean Corpuscular Volume 94 fL (80-100); Mean Platelet Volume 10.8 fL (9.1-12.4); Platelet Count 179 K/mm3 (150-400); RDW Coefficient Variation 12.8 % (11.7-14.2); Red Blood Cell Count 3.76 M/mm3 (4.30-5.90); White Blood Cell Count 17.05 K/mm3 (4.00-11.30)
--- NOTE | 2021-03-01 05:54 | NUR ---
SHIFT SUMMARY PATIENT ALERT AND ORIENTED X3. MEDICATED PER EMAR FOR PAIN NO COMPLAINTS OF SHORNTESS OF BREATH. NO ACUTE ISSUES NOTED OVERNIGHT. IV AND PICC PATENT AND FLUSHED. BED IN LOWEST POSITION WITH WHEELS LOCKED AND ALARM ON. CALL LIGHT WITHIN REACH. REPORT GIVEN TO ONCOMING RN.
[2021-03-01 06:10] LABS: Magnesium, Blood 1.9 mg/dL (1.6-2.4)
[2021-03-01 06:13] LABS: Anion Gap 6 mmol/L (6-16); Blood Urea Nitrogen 20 mg/dL (8-24); Bun/Creatinine Ratio 32.1 (12.0-20.0); CO2, Blood 29 mmol/L (21-32); Calcium, Blood 8.3 mg/dL (8.5-10.1); Chloride, Blood 103 mmol/L (98-108); Creatinine, Blood 0.62 mg/dL (0.60-1.20); Glomerular Filtration Rate >60 (60-); Glucose, Blood 108 mg/dL (70-99); Phosphorus, Blood 3.2 mg/dL (2.5-4.9); Potassium, Blood 3.6 mmol/L (3.5-5.5); Sodium, Blood 138 mmol/L (136-145)
--- NOTE | 2021-03-01 11:02 | NUR ---
PT DISHCARGED TO [facility]. PT HAD IV REMOVED NO SS OF INFECTION NOTED. NURSE CALLED REPORT TO JANNA. PT PLACED IN TAXI BY STAFF .
== END 2021-03-01 10:47 | DRG 871 ==
LOC: ER 11:57 → PCU 14:07 → MEDS 14:07 → PCU 16:36 → MEDS 02-20 22:17 → ENPENDDIS 02-27 17:09 → MEDS 03-01 10:47
PROVIDERS: Emergency Medicine; Internal Medicine; ADMIT Internal Medicine
PROC: 02HV33Z Insertion of Infusion Device into Superior Vena Cava, Percutaneous Approach (ICD-10-PCS; principal; 2021-02-27)
DX: A41.51 Sepsis due to Escherichia coli [E. coli] (principal); R65.21 Severe sepsis with septic shock; G92 Toxic encephalopathy; E87.2 Acidosis; N39.0 Urinary tract infection, site not specified; N12 Tubulo-interstitial nephritis, not specified as acute or chronic; E44.0 Moderate protein-calorie malnutrition; Z66 Do not resuscitate; Z20.822 Contact with and (suspected) exposure to COVID-19; E53.8 Deficiency of other specified B group vitamins; T79.6XXA Traumatic ischemia of muscle, initial encounter; I10 Essential (primary) hypertension; D63.8 Anemia in other chronic diseases classified elsewhere; E87.6 Hypokalemia; M46.46 Discitis, unspecified, lumbar region; M51.37 Other intervertebral disc degeneration, lumbosacral region; M19.90 Unspecified osteoarthritis, unspecified site; Z96.652 Presence of left artificial knee joint; Z98.890 Other specified postprocedural states; Z87.891 Personal history of nicotine dependence; Z79.899 Other long term (current) drug therapy; W18.39XA Other fall on same level, initial encounter; Y92.009 Unspecified place in unspecified non-institutional (private) residence as the place of occurrence of the external cause
CPT/HCPCS: 36415; 36569; 70450; 71045; 72125; 72158; 73502; 80048; 80053; 81001; 82550; 82553; 82607; 82746; 82947; 83605; 83735; 84100; 84132; 84484; 85025; 85027; 85651; 86140; 87040; 87077; 87086; 87186; 93005; 93010; 96365; 96372-59; 97110; 97116; 97162; 97530; 99285-25; A9270; A9579; C1751; G0480; J0360; J0696; J1170; J1650; J2060; J3010; J3420; J3480; J7030; J7040; J7050; J7120; J7512; U0004

== ENCOUNTER 2021-03-18 03:47 | Emergency (ER) | payer BC, MEDICARE ==
[~2021-03-18] VITALS: Ht 177.8 cm; Wt 68.0 kg
[~2021-03-18 03:47] MED LIST changes: +PREG75 PO
[2021-03-18] MEDS ORDERED: Prednisone10 MG PO (04:04)
[2021-03-18] MEDS ORDERED: POTA10T PO (04:04)
[2021-03-18] MEDS ORDERED: AMLO5 PO (04:04)
[2021-03-18] MEDS ORDERED: PREG75 PO (04:05)
[2021-03-18] MEDS ORDERED: PRED20 PO (04:05)
[2021-03-18] MEDS ORDERED: OXYC10ER PO (04:05)
[2021-03-18] MEDS ORDERED: HYDR1TAB94 PO (04:06)
[2021-03-18] MEDS ORDERED: VISBIOME 112.51 EACH PO (04:06)
[2021-03-18] MEDS ORDERED: CEFTRIAXONE2 G1 IV (04:07)
[2021-03-18 04:16] LABS: BASOPHILS ABSOLUTE AUTO 0.03 K/mm3 (0.00-0.23); BASOPHILS PERCENT AUTO 0 % (0-2); EOSINOPHILS ABSOLUTE AUTO 0.12 K/mm3 (0.00-0.68); EOSINOPHILS PERCENT AUTO 1 % (0-6); Hematocrit 37.1 % (37.0-53.0); Hemoglobin 12.5 g/dL (13.5-17.5); IMMATURE GRAN ABSOLUTE AUTO 0.14 K/mm3 (0.00-0.10); IMMATURE GRAN PERCENT AUTO 1 % (0-1); LYMPHOCYTES ABSOLUTE AUTO 0.86 K/mm3 (0.84-5.20); LYMPHOCYTES PERCENT AUTO 5 % (21-46); MONOCYTES ABSOLUTE AUTO 1.41 K/mm3 (0.16-1.47); MONOCYTES PERCENT AUTO 8 % (4-13); Mean Corpuscular HGB 30.9 pg (26.0-34.0); Mean Corpuscular HGB Conc 33.7 g/dL (31.5-36.5); Mean Corpuscular Volume 92 fL (80-100); Mean Platelet Volume 10.3 fL (9.1-12.4); NEUTROPHILS ABSOLUTE AUTO 14.54 K/mm3 (1.96-9.15); NEUTROPHILS PERCENT AUTO 85 % (41-73); Platelet Count 149 K/mm3 (150-400); RDW Standard Deviation 43.5 fL (35.1-46.3); Red Blood Cell Count 4.05 M/mm3 (4.30-5.90)
[2021-03-18 04:26] LABS: Alanine Aminotransfer (ALT/SGP 25 U/L (12-78); Albumin, Blood 2.7 g/dL (3.4-5.0); Albumin/Globulin Ratio 0.8 (0.8-1.8); Alk Phos 77 U/L (50-136); Anion Gap 9 mmol/L (6-16); Aspartate Aminotrans (AST/SGOT 15 U/L (12-37); Bilirubin, Total 0.7 mg/dL (0.1-1.0); Blood Urea Nitrogen 14 mg/dL (8-24); Bun/Creatinine Ratio 21.8 (12.0-20.0); CO2, Blood 26 mmol/L (21-32); Calcium, Blood 7.9 mg/dL (8.5-10.1); Chloride, Blood 103 mmol/L (98-108); Creatinine, Blood 0.64 mg/dL (0.60-1.20); Globulin, Blood 3.5 g/dL (2.2-4.0); Glomerular Filtration Rate >60 (60-); Glucose, Blood 91 mg/dL (70-99); Potassium, Blood 3.9 mmol/L (3.5-5.5); Sodium, Blood 138 mmol/L (136-145); Total Protein, Blood 6.2 g/dL (6.4-8.2)
[2021-03-18 05:19] LABS: Source, Urine Catheter
[2021-03-18 05:20] LABS: Bilirubin, Urine Neg (Neg); Blood, Urine Neg (Neg); Glucose Qualitative, Urine Neg (Neg); Ketones, Urine Neg (Neg); Leukocyte Esterase, Urine 1+ (Neg); Nitrite, Urine Neg (Neg); Protein, Urine Neg (Neg); Specific Gravity, Urine 1.015 (1.003-1.022); Urobilinogen, Urine NORM (Normal)
[2021-03-18 05:31] LABS: Amorphous Light (0-Heavy); Appearance, Urine Hazy (Clear); Bacteria Few /hpf; Calcium Oxalate Crystals Many /hpf; Color, Urine Yellow (P-Yellow); Mucus Light (0-Heavy); Red Blood Cells, Urine Not Seen /hpf (0-2); Squamous Epithelial Cells Few /hpf (Few)
[2021-03-18] MEDS ORDERED: AMOCLA875 PO (07:17)
== END 2021-03-18 08:35 | disposition home or self-care (01) ==
LOC: ER 03:47
PROVIDERS: Student in an Organized Health Care Education/Training Program
DX: K57.92 Diverticulitis of intestine, part unspecified, without perforation or abscess without bleeding (principal); I10 Essential (primary) hypertension; N20.0 Calculus of kidney; Z87.891 Personal history of nicotine dependence; Z72.89 Other problems related to lifestyle
CPT/HCPCS: 71045; 74177; 80053; 81001; 83605; 85025; 87086; 96374-59; 99284-25; A9270; J1885; Q9967